=== PATIENT | male | born 1975 | race Two or more races ===

== ENCOUNTER 2017-07-08 12:59 | Inpatient (IN) | payer OTHER ==
[2017-07-08 14:04] VITALS: BMI 41.5
--- NOTE | 2017-07-08 19:38 | HP ---
Admission [facility] Chief Complaint: "I want to stop drinking alcohol and stop using drugs too." Patient is here for rehab for Alcohol, Cocaine, and Marijuana use. Allergies/Adverse Reactions: Allergies Allergy/AdvReac Type Severity Reaction Status Date / Time No Known Allergies Allergy Verified 07/08/17 15:44 History of Present Illness: Patient is a 42 YO male here for Rehab for Alcohol, Cocaine, and Marijuana use. Patient had a Detox admission at [facility] that he completed today. Patient had a Detox admission [facility] in 2012.Longest period of sobriety / non-drug use: approx. 5 months (2017). Exam Limitations: No Limitations - Ebola screening Have you traveled outside of the country in the last 21 days: No Have you had contact with anyone from an Ebola affected area: No Have you been sick,other than usual withdrawal symptoms: No Do you have a fever: No - Review of Systems Constitutional: Malaise, Changes in sleep EENT: reports: No Symptoms Reported Respiratory: reports: No Symptoms reported Cardiac: reports: No Symptoms Reported GI: reports: Constipated : reports: No Symptoms Reported Musculoskeletal: reports: Joint Pain, Joint Stiffness Integumentary: reports: Other (Erythema on face, lateral to sides of nose; started spontaneously 3 days ago.) Neuro: reports: Seizure (X 1 in 2005, due to ETOH withdrawal.) Endocrine: reports: No Symptoms Reported Hematology: reports: Blood Clots (History of Pulmonary Embolism X 2 (08/2015 and 03/2016).) Psychiatric: reports: Judgement Intact, Mood/Affect Appropiate, Orientated x3 Other Systems: Reviewed and Negative Patient History - Patient Medical History Hx Anemia: No Hx Asthma: No Hx Chronic Obstructive Pulmonary Disease (COPD): No Hx Cancer: No Hx Cardiac Disorders: No Hx Congestive Heart Failure: No Hx Hypertension: Yes (On med.) Hx Hypercholesterolemia: Yes (On med.) Hx Pacemaker: No HX Cerebrovascular Accident: No Hx Seizures: Yes (alcohol related-last episode, 2005.) Hx Dementia: No Hx Diabetes: No Hx Gastrointestinal Disorders: No Hx Liver Disease: No Hx Genitourinary Disorders: No Hx Sexually Transmitted Disorders: No Hx Renal Disease (ESRD): No Hx Thyroid Disease: No Hx Human Immunodeficiency Virus (HIV): No (Last Tested: 06/2017: NEGATIVE.) Hx Hepatitis C: No (Negative History.) Hx Depression: No Hx Suicide Attempt: No (PATIENT DENIES CURRENT SI / HI.) Hx Bipolar Disorder: No Hx Schizophrenia: Yes (Schizoaffective Disorder, currently on treatment) Other Medical History: History of Pulmonary Embolism X 2 (08/2015 and 03/2016). - Patient Surgical History Past Surgical History: Yes Hx Neurologic Surgery: No Hx Cataract Extraction: No Hx Cardiac Surgery: No Hx Lung Surgery: No Hx Breast Surgery: No Hx Breast Biopsy: No Hx Abdominal Surgery: Yes (umbilical hernia repair, 2011.) Hx Appendectomy: No Hx Cholecystectomy: No Hx Genitourinary Surgery: No Hx Section: No Hx Orthopedic Surgery: Yes (Lt. knee arthroscopic surgery, 2011.) Anesthesia Reaction: No - PPD History Previous Implant?: Yes Documented Results: Negative w/o proof Implanted On Prior [facility] Admission?: Yes Date: 07/12/12 PPD to be Administered?: Yes - Reproductive History Patient is a Female of Child Bearing Age (11 -55 yrs old): No (PATIENT IS MALE.) - Smoking Cessation Smoking history: Current some day smoker Aproximately how many cigarettes per day: 2 Cigars Per Day: 0 Hx Chewing Tobacco Use: No Initiated information on smoking cessation: Yes 'Breaking Loose' booklet given: 07/08/17 (GIVEN ON UNIT.) - Substance & Tx. History Hx Alcohol Use: Yes Hx Substance Use: Yes Substance Use Type: Alcohol, Cocaine, Marijuana Hx Substance Use Treatment: Yes (Detox at [facility] (07/2017), Detox at [facility] : 2012.) - Substances Abused Alcohol Route: Oral Frequency: Daily Amount used: 1 LITER VODKA Age of first use: 17 Date of Last Use: 06/29/17 Cocaine Route: Inhalation Frequency: Daily Amount used: 2 GRAMS Age of first use: 23 Date of Last Use: 06/29/17 Marijuana/Hashish Route: Smoking Frequency: 1-3 times last 30 days Amount used: 1 BLUNT Age of first use: 17 Date of Last Use: 06/29/17 Family Disease History - Family Disease History Family Disease History: Heart Disease: Grandparent (CVA) Admission Physical Exam [facility] - Vital Signs Vital Signs: Vital Signs - 24 hr 07/08/17 14:02 Temperature 96.1 F L Pulse Rate 105 H Respiratory 20 Rate Blood Pressure 153/91 - Physical General Appearance: Yes: No Apparent Distress, Nourished, Appropriately Dressed , Anxious HEENTM: Yes: Hearing grossly Normal, Normocephalic, Normal Voice, YUNI, Pharynx Normal Respiratory: Yes: Chest Non-Tender, Lungs Clear, No Respiratory Distress, No Accessory Muscle Use Neck: Yes: No masses,lesions,Nodules, Supple, Trachea in good position Breast: Yes: Breast Exam Deferred Cardiology: Yes: Regular Rhythm, Regular Rate, S1, S2 Abdominal: Yes: Normal Bowel Sounds, Non Tender, Soft, Protuberent Genitourinary: Yes: Within Normal Limits Back: Yes: Normal Inspection Musculoskeletal: Yes: Gait Steady, Joint Stiffness Extremities: Yes: Normal Capillary Refill, Normal Range of Motion Neurological: Yes: Fully Oriented, Alert, Normal Mood/Affect, Normal Response Integumentary: Yes: Normal Color, Dry, Warm, Erythema (Noted on face on bilateral sides of nose. Small opening in skin noted on Left Side. No swelling, bleeding, or unsual discharge noted.) Lymphatic: Yes: Within Normal Limits - Diagnostic (1) Uncomplicated alcohol dependence Current Visit: Yes Status: Acute (2) History of schizoaffective disorder Current Visit: Yes Status: Acute (3) Nicotine dependence Current Visit: Yes Status: Acute (4) Cocaine dependence, uncomplicated Current Visit: Yes Status: Acute (5) Cannabis dependence, uncomplicated Current Visit: Yes Status: Acute (6) Essential hypertension Current Visit: No Status: Active (7) Hypercholesterolemia Current Visit: Yes Status: Acute (8) History of seizure Current Visit: Yes Status: Suspected Comment: Due to ETOH. (9) History of pulmonary embolism Current Visit: Yes Status: Resolved Cleared for Admission [facility] - Detox or Rehab Claeared for Rehab Admission: Yes [facility] Breath Alcohol Content Breath Alcohol Content: 0 Urine Drug Screen - Results Drug Screen Negative: No Urine Drug Screen Results: BZO-Benzodiazepines
--- NOTE | 2017-07-08 20:12 | HP ---
Admission [facility] Chief Complaint: PLEASE NOTE: INPATIENT REHAB ADMISSION 'INITIAL DETERMINATION' AND 'REHAB ADMISSION CRITERIA' SECTIONS APPLY TO PREVIOUS HISTORY AND PHYSICAL. PLEASE DISREGARD ALL OTHER SECTIONS OF THIS DUPLICATE HISTORY AND PHYSICAL. Leesa GARCES NP. Allergies/Adverse Reactions: Allergies Allergy/AdvReac Type Severity Reaction Status Date / Time No Known Allergies Allergy Verified 07/08/17 15:44 - Ebola screening Have you traveled outside of the country in the last 21 days: No Have you had contact with anyone from an Ebola affected area: No Have you been sick,other than usual withdrawal symptoms: No Do you have a fever: No Patient History - Patient Medical History Hx Anemia: No Hx Asthma: No Hx Chronic Obstructive Pulmonary Disease (COPD): No Hx Cancer: No Hx Cardiac Disorders: No Hx Congestive Heart Failure: No Hx Hypertension: Yes (On med.) Hx Hypercholesterolemia: Yes (On med.) Hx Pacemaker: No HX Cerebrovascular Accident: No Hx Seizures: Yes (alcohol related-last episode, 2005.) Hx Dementia: No Hx Diabetes: No Hx Gastrointestinal Disorders: No Hx Liver Disease: No Hx Genitourinary Disorders: No Hx Sexually Transmitted Disorders: No Hx Renal Disease (ESRD): No Hx Thyroid Disease: No Hx Human Immunodeficiency Virus (HIV): No (Last Tested: 06/2017: NEGATIVE.) Hx Hepatitis C: No (Negative History.) Hx Depression: No Hx Suicide Attempt: No (PATIENT DENIES CURRENT SI / HI.) Hx Bipolar Disorder: No Hx Schizophrenia: Yes (Schizoaffective Disorder, currently on treatment) Other Medical History: History of Pulmonary Embolism X 2 (08/2015 and 03/2016). - Patient Surgical History Past Surgical History: Yes Hx Neurologic Surgery: No Hx Cataract Extraction: No Hx Cardiac Surgery: No Hx Lung Surgery: No Hx Breast Surgery: No Hx Breast Biopsy: No Hx Abdominal Surgery: Yes (umbilical hernia repair, 2011.) Hx Appendectomy: No Hx Cholecystectomy: No Hx Genitourinary Surgery: No Hx Section: No Hx Orthopedic Surgery: Yes (Lt. knee arthroscopic surgery, 2011.) Anesthesia Reaction: No - PPD History Previous Implant?: Yes Documented Results: Negative w/o proof Implanted On Prior [facility] Admission?: Yes Date: 07/12/12 - Smoking Cessation Smoking history: Current some day smoker Aproximately how many cigarettes per day: 2 Cigars Per Day: 0 Hx Chewing Tobacco Use: No Initiated information on smoking cessation: Yes 'Breaking Loose' booklet given: 07/08/17 (GIVEN TO PATIENT.) - Substances Abused Alcohol Route: Oral Frequency: Daily Amount used: 1 LITER VODKA Age of first use: 17 Date of Last Use: 06/29/17 Cocaine Route: Inhalation Frequency: Daily Amount used: 2 GRAMS Age of first use: 23 Date of Last Use: 06/29/17 Marijuana/Hashish Route: Smoking Frequency: 1-3 times last 30 days Amount used: 1 BLUNT Age of first use: 17 Date of Last Use: 06/29/17 Family Disease History - Family Disease History Family Disease History: Heart Disease: Grandparent (CVA) Admission Physical Exam S - Vital Signs Vital Signs: Vital Signs - 24 hr 07/08/17 14:02 Temperature 96.1 F L Pulse Rate 105 H Respiratory 20 Rate Blood Pressure 153/91 - Diagnostic (1) Uncomplicated alcohol dependence Current Visit: Yes Status: Acute (2) History of schizoaffective disorder Current Visit: Yes Status: Acute (3) Nicotine dependence Current Visit: Yes Status: Acute (4) Cocaine dependence, uncomplicated Current Visit: Yes Status: Acute (5) Cannabis dependence, uncomplicated Current Visit: Yes Status: Acute (6) Essential hypertension Current Visit: No Status: Active (7) Hypercholesterolemia Current Visit: Yes Status: Acute (8) History of seizure Current Visit: Yes Status: Suspected Comment: Due to ETOH. (9) History of pulmonary embolism Current Visit: Yes Status: Resolved [facility] Breath Alcohol Content Breath Alcohol Content: 0 Urine Drug Screen - Results Drug Screen Negative: No Urine Drug Screen Results: BZO-Benzodiazepines Inpatient Rehab Admission - Initial Determination Are CD services needed?: Yes Free of communicable disease: Yes Not in need of hospitalization: Yes - Rehab Admission Criteria Previous failed treatment: Yes Comorbidities: Yes Patient is meeting Inpatient Rehab admission criteria:: Yes
[2017-07-08] MEDS ORDERED: P-EPHED 60MG/TRIPROLIDI 2.5MG TABLET PO PRN (20:13)
[2017-07-08] MEDS ORDERED: IBUPROFEN 400 MG TABLET (FP) PO PRN (20:13)
[2017-07-08] MEDS ORDERED: ACETAMINOPHEN 325 MG TABLET (FP) PO PRN (20:13)
[2017-07-08] MEDS ORDERED: MENTHOL/PHENOL 1 EACH UD MM PRN (20:13)
[2017-07-08] MEDS ORDERED: MAG HYDROX/AL HYDROX/SIMETH 30 ML UNIT-DOSE CUP PO PRN (20:13)
[2017-07-08] MEDS ORDERED: guaiFENesin/D-METHORPHAN HB 10 ML UNIT-DOSE CUPS PO PRN (20:13)
[2017-07-08] MEDS ORDERED: LOPERAMIDE HCL 2 MG CAPSULE PO PRN (20:13)
[2017-07-08] MEDS ORDERED: diphenhydrAMINE HCL 25 MG CAPSULE (FP) PO PRN (20:15)
[2017-07-08] MEDS: SENNOSIDES 8.6MG TABLET (FP) PO SCH (21:56)
[2017-07-08] MEDS: THIAMINE HCL 100 MG TABLET (FP) PO SCH (21:56)
[2017-07-08] MEDS: ATORVASTATIN CA 20 MG TABLET (FP) PO SCH (21:56)
[2017-07-08] MEDS: DOCUSATE SODIUM 100 MG CAPSULE (FP) PO SCH (21:56)
[2017-07-08] MEDS: BACITRACIN 15 GM TUBE TOPICAL OINTMENT TP SCH (21:57)
[2017-07-08] MEDS ORDERED: TUBERCULIN PPD 5 TU/0.1ML VIAL ID ONE (22:04)
[2017-07-08] MEDS: APIXABAN 5 MG TABLET PO SCH (22:42)
[2017-07-08 23:02] LABS: URINE APPEARANCE CLEAR; URINE BILIRUBIN NEGATIVE (NEGATIVE); URINE BLOOD NEGATIVE (NEGATIVE); URINE COLOR LTYELLOW; URINE GLUCOSE (UA) NEGATIVE (NEGATIVE); URINE KETONE NEGATIVE (NEGATIVE); URINE LEUK ESTERASE NEGATIVE (NEGATIVE); URINE NITRITE NEGATIVE (NEGATIVE); URINE PROTEIN NEGATIVE (NEGATIVE); URINE UROBILINOGEN NEGATIVE mg/dL (0.2-1.0)
[2017-07-08] MEDS: GABAPENTIN 300 MG CAPSULE (FP) PO SCH (23:39)
[2017-07-08] MEDS: QUEtiapine FUMARATE 400 MG TABLET PO SCH (23:40)
[2017-07-08] MEDS: TOPIRAMATE 100 MG TABLET PO SCH (23:50)
[2017-07-09] MEDS: FLUoxetine HCL 20 MG CAPSULE (FP) PO SCH (10:37)
[2017-07-09] MEDS: amLODIPine BESYLATE 10 MG TABLET (FP) PO SCH (10:37)
[2017-07-09] MEDS: PRENATAL VITAMINS W/ FOLIC ACID TABLET (FP) PO SCH (10:37)
[2017-07-09] MEDS: SENNOSIDES 8.6MG TABLET (FP) PO SCH ×2 (10:37→21:57)
[2017-07-09] MEDS: BACITRACIN 15 GM TUBE TOPICAL OINTMENT TP SCH ×2 (10:38→21:56)
[2017-07-09] MEDS: DOCUSATE SODIUM 100 MG CAPSULE (FP) PO SCH ×2 (10:38→21:57)
[2017-07-09] MEDS: APIXABAN 5 MG TABLET PO SCH ×2 (10:38→21:57)
[2017-07-09] MEDS: GABAPENTIN 300 MG CAPSULE (FP) PO SCH ×2 (10:38→21:57)
[2017-07-09 10:41] LABS: HEMATOCRIT 35.9 % (35.4-49); HEMOGLOBIN 11.2 GM/dL (11.7-16.9); MCH 24.8 pg (25.7-33.7); MEAN CELL VOLUME 79.8 fl (80-96); MEAN PLT VOLUME 8.4 fl (7.5-11.1); PLATELET COUNT 224 K/MM3 (134-434); RDW 20.4 % (11.9-15.9); WHITE BLOOD COUNT 6.9 K/mm3 (4.0-10.0)
[2017-07-09 11:12] LABS: ALBUMIN 3.1 g/dl (3.4-5.0); ALK PHOS 73 U/L (45-117); ANION GAP 9 (8-16); BILIRUBIN,TOTAL 0.5 mg/dL (0.2-1.0); BLOOD UREA NITROGEN 10 mg/dL (7-18); CALCIUM 8.1 mg/dL (8.5-10.1); CHLORIDE 106 mmol/L (98-107); CO2 26 mmol/L (21-32); CREATININE 0.6 mg/dL (0.7-1.3); GLUCOSE,RANDOM 97 mg/dL (74-106); POTASSIUM 3.7 mmol/L (3.5-5.1); SGOT/AST 24 U/L (15-37); SGPT/ALT 33 U/L (12-78); SODIUM 141 mmol/L (136-145); TOT PROT 7.2 g/dl (6.4-8.2)
[2017-07-09] MEDS: MAGNESIUM HYDROX 2400MG/30ML ORAL SUSPENSION 30 ML CUP PO PRN ×2 (15:43→21:56)
[2017-07-09] MEDS: THIAMINE HCL 100 MG TABLET (FP) PO SCH (21:57)
[2017-07-09] MEDS: ATORVASTATIN CA 20 MG TABLET (FP) PO SCH (21:57)
[2017-07-09] MEDS: QUEtiapine FUMARATE 400 MG TABLET PO SCH (22:04)
[2017-07-09] MEDS: TOPIRAMATE 100 MG TABLET PO SCH (22:04)
[2017-07-10] MEDS: SENNOSIDES 8.6MG TABLET (FP) PO SCH ×2 (10:30→21:35)
[2017-07-10] MEDS: DOCUSATE SODIUM 100 MG CAPSULE (FP) PO SCH ×2 (10:30→21:37)
[2017-07-10] MEDS: APIXABAN 5 MG TABLET PO SCH ×2 (10:30→21:36)
[2017-07-10] MEDS: FLUoxetine HCL 20 MG CAPSULE (FP) PO SCH (10:30)
[2017-07-10] MEDS: GABAPENTIN 300 MG CAPSULE (FP) PO SCH ×2 (10:30→21:34)
[2017-07-10] MEDS: PRENATAL VITAMINS W/ FOLIC ACID TABLET (FP) PO SCH (10:31)
[2017-07-10] MEDS: amLODIPine BESYLATE 10 MG TABLET (FP) PO SCH (10:31)
[2017-07-10] MEDS: BACITRACIN 15 GM TUBE TOPICAL OINTMENT TP SCH ×2 (10:31→21:34)
--- NOTE | 2017-07-10 13:16 | EKG ---
Test Reason : Blood Pressure : / mmHG Vent. Rate : 072 BPM Atrial Rate : 072 BPM P-R Int : 168 ms QRS Dur : 098 ms QT Int : 394 ms P-R-T Axes : 054 -04 019 degrees QTc Int : 431 ms NORMAL SINUS RHYTHM NORMAL ECG WHEN COMPARED WITH ECG OF 08-JUL-2017 23:15, NO SIGNIFICANT CHANGE WAS FOUND Confirmed by MARKY ALONZO MD ([id number]) on 07/10/2017 1:16:12 PM Referred By: Confirmed By:MARKY ALONZO MD
--- NOTE | 2017-07-10 13:18 | EKG ---
Test Reason : Blood Pressure : / mmHG Vent. Rate : 096 BPM Atrial Rate : 096 BPM P-R Int : 164 ms QRS Dur : 106 ms QT Int : 358 ms P-R-T Axes : 053 -28 038 degrees QTc Int : 452 ms NORMAL SINUS RHYTHM POOR R WAVE PROGRESSION ABNORMAL ECG NO PREVIOUS ECGS AVAILABLE Confirmed by CHERI WALTERS, MARKY ([id number]) on 07/10/2017 1:17:40 PM Referred By: Confirmed By:MARKY ALONZO MD
[2017-07-10] MEDS: MAGNESIUM HYDROX 2400MG/30ML ORAL SUSPENSION 30 ML CUP PO PRN (17:42)
[2017-07-10] MEDS: THIAMINE HCL 100 MG TABLET (FP) PO SCH (21:34)
[2017-07-10] MEDS: TOPIRAMATE 100 MG TABLET PO SCH (21:35)
[2017-07-10] MEDS: ATORVASTATIN CA 20 MG TABLET (FP) PO SCH (21:35)
[2017-07-10] MEDS: QUEtiapine FUMARATE 400 MG TABLET PO SCH (21:37)
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
[2017-07-11] MEDS: amLODIPine BESYLATE 10 MG TABLET (FP) PO SCH (10:22)
[2017-07-11] MEDS: DOCUSATE SODIUM 100 MG CAPSULE (FP) PO SCH ×2 (10:22→22:03)
[2017-07-11] MEDS: SENNOSIDES 8.6MG TABLET (FP) PO SCH ×2 (10:22→22:02)
[2017-07-11] MEDS: PRENATAL VITAMINS W/ FOLIC ACID TABLET (FP) PO SCH (10:22)
[2017-07-11] MEDS: FLUoxetine HCL 20 MG CAPSULE (FP) PO SCH ×2 (10:23→10:24)
[2017-07-11] MEDS: APIXABAN 5 MG TABLET PO SCH ×2 (10:23→22:02)
[2017-07-11] MEDS: BACITRACIN 15 GM TUBE TOPICAL OINTMENT TP SCH ×2 (10:23→22:04)
[2017-07-11] MEDS: GABAPENTIN 300 MG CAPSULE (FP) PO SCH ×3 (10:36→22:02)
[2017-07-11] MEDS ORDERED: GABAPENTIN 300 MG CAPSULE (FP) PO SCH (14:00)
--- NOTE | 2017-07-11 16:23 | PN ---
[facility] Progress Note Note: pt c/o constipation; colace 100mg tid ordered
[2017-07-11] MEDS: MAGNESIUM CITRATE 300 ML BOTTLE PO PRN (17:34)
[2017-07-11] MEDS ORDERED: TOPIRAMATE 100 MG TABLET PO SCH (22:00)
[2017-07-11] MEDS: ATORVASTATIN CA 20 MG TABLET (FP) PO SCH (22:02)
[2017-07-11] MEDS: QUEtiapine FUMARATE 300 MG TABLET PO SCH (22:02)
[2017-07-11] MEDS: THIAMINE HCL 100 MG TABLET (FP) PO SCH (22:02)
[2017-07-11] MEDS: TOPIRAMATE 100 MG TABLET PO SCH (22:03)
[2017-07-12] MEDS: GABAPENTIN 300 MG CAPSULE (FP) PO SCH ×3 (06:30→21:22)
[2017-07-12] MEDS: DOCUSATE SODIUM 100 MG CAPSULE (FP) PO SCH ×3 (06:30→21:26)
[2017-07-12] MEDS: amLODIPine BESYLATE 10 MG TABLET (FP) PO SCH (10:44)
[2017-07-12] MEDS: FLUoxetine HCL 20 MG CAPSULE (FP) PO SCH (10:45)
[2017-07-12] MEDS: SENNOSIDES 8.6MG TABLET (FP) PO SCH ×2 (10:45→21:23)
[2017-07-12] MEDS: BACITRACIN 15 GM TUBE TOPICAL OINTMENT TP SCH ×2 (10:45→21:25)
[2017-07-12] MEDS: APIXABAN 5 MG TABLET PO SCH ×2 (10:45→21:24)
[2017-07-12] MEDS: PRENATAL VITAMINS W/ FOLIC ACID TABLET (FP) PO SCH (10:47)
--- NOTE | 2017-07-12 15:10 | PN ---
BHS Progress Note (SOAP) Subjective: c/o cosntipation - not repsonsive to colace or senna or citramayesterday Objective: 07/12/17 15:09 Vital Signs - 24 hr 07/12/17 07/12/17 07/12/17 00:30 03:29 06:52 Temperature 97.4 F L Pulse Rate 78 Respiratory 16 16 18 Rate Blood Pressure 114/76 07/12/17 10:00 Temperature Pulse Rate 84 Respiratory 18 Rate Blood Pressure 125/70 Laboratory Tests 07/08/17 07/09/17 07/09/17 22:32 07:50 07:50 WBC 6.9 RBC 4.50 Hgb 11.2 L D Hct 35.9 D MCV 79.8 L MCH 24.8 L MCHC 31.0 L RDW 20.4 H D Plt Count 224 D MPV 8.4 Sodium 141 Potassium 3.7 Chloride 106 Carbon Dioxide 26 Anion Gap 9 BUN 10 D Creatinine 0.6 L D Creat Clearance w eGFR > 60 Random Glucose 97 D Calcium 8.1 L Total Bilirubin 0.5 D AST 24 D ALT 33 D Alkaline Phosphatase 73 D Total Protein 7.2 Albumin 3.1 L D Urine Color Ltyellow Urine Appearance Clear Urine pH 6.0 Ur Specific [place] 1.006 Urine Protein Negative Urine Glucose (UA) Negative Urine Ketones Negative Urine Blood Negative Urine Nitrite Negative Urine Bilirubin Negative Urine Urobilinogen Negative Ur Leukocyte Esterase Negative RPR Titer Hepatitis C Antibody HIV 1&2 Antibody Screen HIV P24 Antigen 07/09/17 07/09/17 07/09/17 07:50 07:50 07:50 WBC RBC Hgb Hct MCV MCH MCHC RDW Plt Count MPV Sodium Potassium Chloride Carbon Dioxide Anion Gap BUN Creatinine Creat Clearance w eGFR Random Glucose Calcium Total Bilirubin AST ALT Alkaline Phosphatase Total Protein Albumin Urine Color Urine Appearance Urine pH Ur Specific [place] Urine Protein Urine Glucose (UA) Urine Ketones Urine Blood Urine Nitrite Urine Bilirubin Urine Urobilinogen Ur Leukocyte Esterase RPR Titer Nonreactive Hepatitis C Antibody 0.2 HIV 1&2 Antibody Screen Negative HIV P24 Antigen Negative Assessment: 07/12/17 15:09 colace 300mg qhs, senna bid, citrooma x1 dose now and prn, lactulaose 20m x1 dose ntw of medication induced constipation
[2017-07-12] MEDS ORDERED: LACTULOSE 20 GM/30 ML UDC (FOR ORAL USE ONLY) PO ONE (15:17)
[2017-07-12] MEDS ORDERED: MAGNESIUM CITRATE 300 ML BOTTLE PO ONE (15:17)
[2017-07-12] MEDS: QUEtiapine FUMARATE 300 MG TABLET PO SCH (21:23)
[2017-07-12] MEDS: ATORVASTATIN CA 20 MG TABLET (FP) PO SCH (21:23)
[2017-07-12] MEDS: TOPIRAMATE 100 MG TABLET PO SCH (21:24)
[2017-07-12] MEDS: THIAMINE HCL 100 MG TABLET (FP) PO SCH (21:24)
[2017-07-13] MEDS: GABAPENTIN 300 MG CAPSULE (FP) PO SCH ×3 (06:13→21:52)
[2017-07-13] MEDS: PRENATAL VITAMINS W/ FOLIC ACID TABLET (FP) PO SCH (10:19)
[2017-07-13] MEDS: APIXABAN 5 MG TABLET PO SCH ×2 (10:19→21:52)
[2017-07-13] MEDS: SENNOSIDES 8.6MG TABLET (FP) PO SCH ×2 (10:19→21:52)
[2017-07-13] MEDS: BACITRACIN 15 GM TUBE TOPICAL OINTMENT TP SCH ×2 (10:19→21:54)
[2017-07-13] MEDS: FLUoxetine HCL 20 MG CAPSULE (FP) PO SCH (10:20)
[2017-07-13] MEDS: amLODIPine BESYLATE 10 MG TABLET (FP) PO SCH (10:20)
[2017-07-13] MEDS: MAGNESIUM HYDROX 2400MG/30ML ORAL SUSPENSION 30 ML CUP PO PRN (13:10)
[2017-07-13] MEDS: THIAMINE HCL 100 MG TABLET (FP) PO SCH (21:51)
[2017-07-13] MEDS: DOCUSATE SODIUM 100 MG CAPSULE (FP) PO SCH (21:52)
[2017-07-13] MEDS: ATORVASTATIN CA 20 MG TABLET (FP) PO SCH (21:52)
[2017-07-13] MEDS: QUEtiapine FUMARATE 300 MG TABLET PO SCH (21:52)
[2017-07-13] MEDS: TOPIRAMATE 100 MG TABLET PO SCH (21:52)
[2017-07-14] MEDS: GABAPENTIN 300 MG CAPSULE (FP) PO SCH ×3 (05:55→21:43)
[2017-07-14] MEDS: SENNOSIDES 8.6MG TABLET (FP) PO SCH ×2 (10:27→21:43)
[2017-07-14] MEDS: APIXABAN 5 MG TABLET PO SCH ×2 (10:27→21:43)
[2017-07-14] MEDS: amLODIPine BESYLATE 10 MG TABLET (FP) PO SCH (10:27)
[2017-07-14] MEDS: FLUoxetine HCL 20 MG CAPSULE (FP) PO SCH (10:27)
[2017-07-14] MEDS: PRENATAL VITAMINS W/ FOLIC ACID TABLET (FP) PO SCH (10:28)
[2017-07-14] MEDS: BACITRACIN 15 GM TUBE TOPICAL OINTMENT TP SCH ×2 (10:28→21:44)
[2017-07-14] MEDS: MAGNESIUM CITRATE 300 ML BOTTLE PO PRN (12:45)
[2017-07-14] MEDS: TOPIRAMATE 100 MG TABLET PO SCH (21:43)
[2017-07-14] MEDS: QUEtiapine FUMARATE 300 MG TABLET PO SCH (21:43)
[2017-07-14] MEDS: DOCUSATE SODIUM 100 MG CAPSULE (FP) PO SCH (21:43)
[2017-07-14] MEDS: ATORVASTATIN CA 20 MG TABLET (FP) PO SCH (21:43)
[2017-07-14] MEDS: THIAMINE HCL 100 MG TABLET (FP) PO SCH (21:44)
[2017-07-15] MEDS: GABAPENTIN 300 MG CAPSULE (FP) PO SCH ×3 (06:30→21:15)
[2017-07-15] MEDS: SENNOSIDES 8.6MG TABLET (FP) PO SCH ×2 (10:24→21:14)
[2017-07-15] MEDS: FLUoxetine HCL 20 MG CAPSULE (FP) PO SCH (10:24)
[2017-07-15] MEDS: APIXABAN 5 MG TABLET PO SCH ×2 (10:24→21:14)
[2017-07-15] MEDS: amLODIPine BESYLATE 10 MG TABLET (FP) PO SCH (10:24)
[2017-07-15] MEDS: PRENATAL VITAMINS W/ FOLIC ACID TABLET (FP) PO SCH (10:24)
[2017-07-15] MEDS: BACITRACIN 15 GM TUBE TOPICAL OINTMENT TP SCH (10:25)
[2017-07-15] MEDS: MAGNESIUM HYDROX 2400MG/30ML ORAL SUSPENSION 30 ML CUP PO PRN (10:26)
[2017-07-15] MEDS: BACITRACIN 0.9 GM PACKET TP SCH ×2 (12:39→21:13)
[2017-07-15] MEDS: DOCUSATE SODIUM 100 MG CAPSULE (FP) PO SCH (21:13)
[2017-07-15] MEDS: THIAMINE HCL 100 MG TABLET (FP) PO SCH (21:13)
[2017-07-15] MEDS: TOPIRAMATE 100 MG TABLET PO SCH (21:13)
[2017-07-15] MEDS: QUEtiapine FUMARATE 300 MG TABLET PO SCH (21:13)
[2017-07-15] MEDS: ATORVASTATIN CA 20 MG TABLET (FP) PO SCH (21:14)
[2017-07-16] MEDS: GABAPENTIN 300 MG CAPSULE (FP) PO SCH ×3 (06:42→21:35)
[2017-07-16] MEDS: APIXABAN 5 MG TABLET PO SCH ×2 (10:28→21:35)
[2017-07-16] MEDS: BACITRACIN 0.9 GM PACKET TP SCH ×2 (10:28→21:37)
[2017-07-16] MEDS: PRENATAL VITAMINS W/ FOLIC ACID TABLET (FP) PO SCH (10:28)
[2017-07-16] MEDS: amLODIPine BESYLATE 10 MG TABLET (FP) PO SCH (10:28)
[2017-07-16] MEDS: FLUoxetine HCL 20 MG CAPSULE (FP) PO SCH (10:28)
[2017-07-16] MEDS: SENNOSIDES 8.6MG TABLET (FP) PO SCH ×2 (10:28→21:35)
[2017-07-16] MEDS: MAGNESIUM HYDROX 2400MG/30ML ORAL SUSPENSION 30 ML CUP PO PRN (16:01)
[2017-07-16] MEDS: TOPIRAMATE 100 MG TABLET PO SCH (21:35)
[2017-07-16] MEDS: ATORVASTATIN CA 20 MG TABLET (FP) PO SCH (21:35)
[2017-07-16] MEDS: THIAMINE HCL 100 MG TABLET (FP) PO SCH (21:35)
[2017-07-16] MEDS: QUEtiapine FUMARATE 300 MG TABLET PO SCH (21:35)
[2017-07-16] MEDS: DOCUSATE SODIUM 100 MG CAPSULE (FP) PO SCH (21:36)
[2017-07-17] MEDS: GABAPENTIN 300 MG CAPSULE (FP) PO SCH ×3 (06:27→21:56)
[2017-07-17] MEDS: BACITRACIN 0.9 GM PACKET TP SCH ×2 (10:27→21:56)
[2017-07-17] MEDS: APIXABAN 5 MG TABLET PO SCH ×2 (10:27→21:57)
[2017-07-17] MEDS: PRENATAL VITAMINS W/ FOLIC ACID TABLET (FP) PO SCH (10:27)
[2017-07-17] MEDS: FLUoxetine HCL 20 MG CAPSULE (FP) PO SCH (10:28)
[2017-07-17] MEDS: amLODIPine BESYLATE 10 MG TABLET (FP) PO SCH (10:28)
[2017-07-17] MEDS: SENNOSIDES 8.6MG TABLET (FP) PO SCH ×2 (10:28→21:57)
[2017-07-17] MEDS: MAGNESIUM CITRATE 300 ML BOTTLE PO PRN (16:30)
[2017-07-17] MEDS: TOPIRAMATE 100 MG TABLET PO SCH (21:57)
[2017-07-17] MEDS: ATORVASTATIN CA 20 MG TABLET (FP) PO SCH (21:57)
[2017-07-17] MEDS: THIAMINE HCL 100 MG TABLET (FP) PO SCH (21:57)
[2017-07-17] MEDS: DOCUSATE SODIUM 100 MG CAPSULE (FP) PO SCH (21:57)
[2017-07-17] MEDS: QUEtiapine FUMARATE 300 MG TABLET PO SCH (21:57)
[2017-07-18] MEDS: GABAPENTIN 300 MG CAPSULE (FP) PO SCH ×3 (06:40→21:28)
[2017-07-18] MEDS: APIXABAN 5 MG TABLET PO SCH ×2 (10:32→21:28)
[2017-07-18] MEDS: FLUoxetine HCL 20 MG CAPSULE (FP) PO SCH (10:32)
[2017-07-18] MEDS: PRENATAL VITAMINS W/ FOLIC ACID TABLET (FP) PO SCH (10:32)
[2017-07-18] MEDS: amLODIPine BESYLATE 10 MG TABLET (FP) PO SCH (10:32)
[2017-07-18] MEDS: SENNOSIDES 8.6MG TABLET (FP) PO SCH ×2 (10:32→21:28)
[2017-07-18] MEDS: BACITRACIN 0.9 GM PACKET TP SCH ×2 (10:33→21:27)
[2017-07-18] MEDS: MAGNESIUM HYDROX 2400MG/30ML ORAL SUSPENSION 30 ML CUP PO PRN (18:12)
[2017-07-18] MEDS: DOCUSATE SODIUM 100 MG CAPSULE (FP) PO SCH (21:27)
[2017-07-18] MEDS: THIAMINE HCL 100 MG TABLET (FP) PO SCH (21:27)
[2017-07-18] MEDS: TOPIRAMATE 100 MG TABLET PO SCH (21:28)
[2017-07-18] MEDS: QUEtiapine FUMARATE 300 MG TABLET PO SCH (21:28)
[2017-07-18] MEDS: ATORVASTATIN CA 20 MG TABLET (FP) PO SCH (21:28)
[2017-07-19] MEDS: GABAPENTIN 300 MG CAPSULE (FP) PO SCH ×3 (06:37→22:08)
[2017-07-19] MEDS: PRENATAL VITAMINS W/ FOLIC ACID TABLET (FP) PO SCH (10:43)
[2017-07-19] MEDS: amLODIPine BESYLATE 10 MG TABLET (FP) PO SCH (10:43)
[2017-07-19] MEDS: SENNOSIDES 8.6MG TABLET (FP) PO SCH ×2 (10:44→22:08)
[2017-07-19] MEDS: FLUoxetine HCL 20 MG CAPSULE (FP) PO SCH (10:44)
[2017-07-19] MEDS: APIXABAN 5 MG TABLET PO SCH ×2 (10:44→22:08)
[2017-07-19] MEDS: BACITRACIN 0.9 GM PACKET TP SCH ×2 (10:44→22:07)
[2017-07-19] MEDS: MAGNESIUM CITRATE 300 ML BOTTLE PO PRN (17:04)
[2017-07-19] MEDS: DOCUSATE SODIUM 100 MG CAPSULE (FP) PO SCH (22:08)
[2017-07-19] MEDS: QUEtiapine FUMARATE 300 MG TABLET PO SCH (22:08)
[2017-07-19] MEDS: TOPIRAMATE 100 MG TABLET PO SCH (22:08)
[2017-07-19] MEDS: ATORVASTATIN CA 20 MG TABLET (FP) PO SCH (22:09)
[2017-07-19] MEDS: THIAMINE HCL 100 MG TABLET (FP) PO SCH (22:09)
[2017-07-20] MEDS: GABAPENTIN 300 MG CAPSULE (FP) PO SCH ×3 (06:23→21:45)
[2017-07-20] MEDS: SENNOSIDES 8.6MG TABLET (FP) PO SCH ×2 (10:33→21:46)
[2017-07-20] MEDS: amLODIPine BESYLATE 10 MG TABLET (FP) PO SCH (10:33)
[2017-07-20] MEDS: BACITRACIN 0.9 GM PACKET TP SCH ×2 (10:33→21:45)
[2017-07-20] MEDS: APIXABAN 5 MG TABLET PO SCH ×2 (10:33→21:46)
[2017-07-20] MEDS: PRENATAL VITAMINS W/ FOLIC ACID TABLET (FP) PO SCH (10:33)
[2017-07-20] MEDS: FLUoxetine HCL 20 MG CAPSULE (FP) PO SCH (10:33)
[2017-07-20] MEDS: MAGNESIUM HYDROX 2400MG/30ML ORAL SUSPENSION 30 ML CUP PO PRN (14:43)
[2017-07-20] MEDS: DOCUSATE SODIUM 100 MG CAPSULE (FP) PO SCH (21:45)
[2017-07-20] MEDS: QUEtiapine FUMARATE 300 MG TABLET PO SCH (21:45)
[2017-07-20] MEDS: THIAMINE HCL 100 MG TABLET (FP) PO SCH (21:45)
[2017-07-20] MEDS: TOPIRAMATE 100 MG TABLET PO SCH (21:46)
[2017-07-20] MEDS: ATORVASTATIN CA 20 MG TABLET (FP) PO SCH (21:46)
[2017-07-21] MEDS ORDERED: PT OWN MED DRAWER 7, Y5N ONE (04:53)
[2017-07-21] MEDS: GABAPENTIN 300 MG CAPSULE (FP) PO SCH ×3 (06:30→21:47)
[2017-07-21 07:08] VITALS: TEMP 97.2
[2017-07-21] MEDS: PRENATAL VITAMINS W/ FOLIC ACID TABLET (FP) PO SCH (10:40)
[2017-07-21] MEDS: FLUoxetine HCL 20 MG CAPSULE (FP) PO SCH (10:40)
[2017-07-21] MEDS: APIXABAN 5 MG TABLET PO SCH ×2 (10:40→21:48)
[2017-07-21] MEDS: SENNOSIDES 8.6MG TABLET (FP) PO SCH ×2 (10:40→21:47)
[2017-07-21] MEDS: BACITRACIN 0.9 GM PACKET TP SCH ×2 (10:40→21:47)
[2017-07-21] MEDS: amLODIPine BESYLATE 10 MG TABLET (FP) PO SCH (10:40)
[2017-07-21] MEDS: MAGNESIUM CITRATE 300 ML BOTTLE PO PRN (16:55)
[2017-07-21] MEDS: THIAMINE HCL 100 MG TABLET (FP) PO SCH (21:47)
[2017-07-21] MEDS: ATORVASTATIN CA 20 MG TABLET (FP) PO SCH (21:48)
[2017-07-21] MEDS: QUEtiapine FUMARATE 300 MG TABLET PO SCH (21:48)
[2017-07-21] MEDS: TOPIRAMATE 100 MG TABLET PO SCH (21:48)
[2017-07-21] MEDS: DOCUSATE SODIUM 100 MG CAPSULE (FP) PO SCH (21:48)
[2017-07-22] MEDS: GABAPENTIN 300 MG CAPSULE (FP) PO SCH (05:52)
[2017-07-22] MEDS: BACITRACIN 0.9 GM PACKET TP SCH (10:37)
[2017-07-22] MEDS: FLUoxetine HCL 20 MG CAPSULE (FP) PO SCH (10:37)
[2017-07-22] MEDS: APIXABAN 5 MG TABLET PO SCH (10:37)
[2017-07-22] MEDS: SENNOSIDES 8.6MG TABLET (FP) PO SCH (10:38)
[2017-07-22] MEDS: PRENATAL VITAMINS W/ FOLIC ACID TABLET (FP) PO SCH (10:38)
[2017-07-22] MEDS: amLODIPine BESYLATE 10 MG TABLET (FP) PO SCH (10:38)
--- NOTE | 2017-07-22 10:50 | PN ---
Psychiatric Progress Note Vital Signs: Vital Signs Period Temp Pulse Resp BP Sys/Samuels Pulse Ox Last 24 Hr 97.2 F 93 20-20 126/74 Date of Session: 07/22/17 Chief Complaint:: "Discharge" HPI: Pt.with a history of alcohol, cocaine, and marijuana dependence. ROS: Unremarkable. Current Medications: Active Medications Generic Name Dose Route Start Last Admin Trade Name Freq PRN Reason Stop Dose Admin Acetaminophen 650 mg 07/08/17 20:13 Tylenol - PO Q4H PRN FEVER Al Hydroxide/Mg Hydroxide 30 ml 07/08/17 20:13 07/15/17 17:52 Mylanta Oral Suspension - PO 30 ml Q6H PRN Administration DYSPEPSIA Amlodipine Besylate 10 mg 07/09/17 10:00 07/22/17 10:38 Norvasc - PO 10 mg DAILY ELISEO Administration Apixaban 5 mg 07/08/17 22:00 07/22/17 10:37 Eliquis - PO 5 mg BID ELISEO Administration Atorvastatin Calcium 20 mg 07/08/17 22:00 07/21/17 21:48 Lipitor - PO 20 mg HS ELISEO Administration Bacitracin 0.9 gm 07/15/17 11:12 07/22/17 10:37 Bacitracin - TP 0.9 gm BID ELISEO Administration Diphenhydramine HCl 50 mg 07/08/17 20:15 Benadryl - PO HS PRN INSOMNIA Docusate Sodium 300 mg 07/12/17 22:00 07/21/17 21:48 Colace - PO 300 mg HS ELISEO Administration Eucalyptus/Menthol/Phenol/Sorbitol 1 each 07/08/17 20:13 Cepastat Lozenge - MM Q4H PRN SORE THROAT Fluoxetine HCl 60 mg 07/11/17 10:15 07/22/17 10:37 Prozac - PO 60 mg DAILY ELISEO Administration Gabapentin 600 mg 07/11/17 14:00 07/22/17 05:52 Neurontin - PO 600 mg TID ELISEO Administration Guaifenesin 10 ml 07/08/17 20:13 Robitussin Dm - PO Q6H PRN COUGH Loperamide HCl 4 mg 07/08/17 20:13 Imodium - PO Q6H PRN DIARRHEA Magnesium Citrate 300 ml 07/08/17 20:13 07/21/17 16:55 Citroma - PO 300 ml Q48H PRN Administration CONSTIPATION Magnesium Hydroxide 30 ml 07/08/17 20:13 07/20/17 14:43 Milk Of Magnesia - PO 30 ml DAILY PRN Administration CONSTIPATION Multivit/Folic Acid/Iron 1 tab 07/09/17 10:00 07/22/17 10:38 Vitamins ([facility]) - PO 1 tab DAILY ELISEO Administration Pseudoephedrine/Triprolidine 1 combo 07/08/17 20:13 Actifed - PO TID PRN NASAL CONGESTION Quetiapine Fumarate 600 mg 07/11/17 22:00 07/21/17 21:48 Seroquel - PO 600 mg HS ELISEO Administration Senna 1 tab 07/08/17 22:00 07/22/17 10:38 Senna - PO 1 tab BID ELISEO Administration Thiamine HCl 100 mg 07/08/17 22:00 07/21/17 21:47 Vitamin B1 - PO 100 mg HS ELISEO Administration Topiramate 100 mg 07/08/17 23:30 07/21/17 21:48 Topamax - PO 100 mg HS ELISEO Administration Medication(s) Change(s): No. Current Side Effect: No Lab tests ordered: No Lab tests reviewed: Yes Provider note:: Pt. completed the inpatient rehabilitation program on 07/22/17. Her has met his treatment goals and will continue to address his issues in outpatient treatment at [facility] in [place], [place]. Pt is able to understand the consequences of his addiction and the need to make positive changes to his life style in order to maintain abstinence. Pt. responded well to Prozac 60mg PO daily, Gabapentin 600mg TID, Seroquel 600mg qhs , and Topamax 100mg qhs.A script for 30 days will be sent to patient's pharmay at [place] [id number]. Pt. is stable for discharge. Total face to face time:: 25 Mental Status Exam - Mental Status Exam Alert and Oriented to: Time, Place, Person Cognitive Function: Good Patient Appearance: Unkempt Mood: Euthymic Affect: Mood Congruent Patient Behavior: Appropriate, Cooperative Speech Pattern: Clear, Appropriate Voice Loudness: Normal Thought Process: Goal Oriented Thought Disorder: Not Present Hallucinations: Denies Suicidal Ideation: Denies Homicidal Ideation: Denies Insight/Judgement: Good Sleep: Well Appetite: Good Muscle strength/Tone: Normal Gait/Station: Normal Psychiatric Treatment Plan - Problem List (1) Alcohol dependence Current Visit: Yes (2) Cannabis dependence Current Visit: Yes (3) Cocaine dependence Current Visit: Yes (4) Substance-induced sleep disorder Current Visit: Yes (5) Nicotine dependence Current Visit: Yes (6) Schizoaffective disorder Current Visit: Yes
[2017-07-22 12:25] VITALS: BP 113/68; PULSE 106
== END 2017-07-22 11:15 | disposition home or self-care (01) | DRG 772 ==
LOC: YASAS 12:59 → Y3W 16:23
PROVIDERS: ADMIT Psychiatry & Neurology Psychiatry; ATTEND Psychiatry & Neurology Psychiatry
PROC: HZ42ZZZ Group Counseling for Substance Abuse Treatment, Cognitive-Behavioral (ICD-10-PCS; principal; 2017-07-08)
DX: F10.20 Alcohol dependence, uncomplicated (principal); F14.20 Cocaine dependence, uncomplicated; F12.20 Cannabis dependence, uncomplicated; F17.210 Nicotine dependence, cigarettes, uncomplicated; F25.9 Schizoaffective disorder, unspecified; F10.282 Alcohol dependence with alcohol-induced sleep disorder; E78.00 Pure hypercholesterolemia, unspecified; Z86.69 Personal history of other diseases of the nervous system and sense organs; Z86.711 Personal history of pulmonary embolism
CPT/HCPCS: 36415; 80053; 81003; 85027; 86593; 86803; 87389; 93005; 93010

== ENCOUNTER 2021-07-15 18:28 | Inpatient (IN) | payer BC ==
[2021-07-15] MEDS ORDERED: MELATONIN 5 MG TABLETS PO SCH (22:00)
[2021-07-15] MEDS ORDERED: P-EPHED 60MG/TRIPROLIDI 2.5MG TABLET PO PRN (22:22)
[2021-07-15] MEDS ORDERED: MAGNESIUM CITRATE 300 ML BOTTLE PO PRN (22:22)
[2021-07-15] MEDS ORDERED: ACETAMINOPHEN 325 MG TABLET (FP) PO PRN (22:22)
[2021-07-15] MEDS ORDERED: MAGNESIUM HYDROX 2400MG/30ML ORAL SUSPENSION 30 ML CUP PO PRN (22:22)
[2021-07-15] MEDS ORDERED: IBUPROFEN 400 MG TABLET (FP) PO PRN (22:22)
[2021-07-15] MEDS ORDERED: MENTHOL/PHENOL 1 EACH UD MM PRN (22:22)
[2021-07-15] MEDS ORDERED: guaiFENesin 200 MG/10 ML 10 ML UNIT-DOSE CUPS PO PRN (22:22)
[2021-07-15] MEDS ORDERED: MAG HYDROX/AL HYDROX/SIMETH 30 ML UNIT-DOSE CUP PO PRN (22:22)
[2021-07-15] MEDS ORDERED: GABAPENTIN 400 MG CAPSULE PO ONE (22:26)
[2021-07-16 00:02] VITALS: BMI 49.0
[2021-07-16] MEDS: APIXABAN 5 MG TABLET PO SCH ×3 (00:52→21:53)
[2021-07-16] MEDS: INSULIN SLIDING SCALE (NOVOLOG) 1 VIAL SQ SCH ×5 (00:55→21:55)
[2021-07-16] MEDS: PRENATAL VITAMINS W/ FOLIC ACID TABLET (FP) PO SCH (09:30)
[2021-07-16] MEDS: NIFEdipine E.R. 30 MG TABLET PO SCH (10:55)
[2021-07-16] MEDS ORDERED: INSULIN (NOVOLOG) ASPART 100 UNITS/ML 10ML VIAL ONE (11:59)
[2021-07-16] MEDS: FLUoxetine HCL 20 MG CAPSULE PO SCH (12:03)
[2021-07-16] MEDS: GABAPENTIN 400 MG CAPSULE PO SCH ×2 (15:58→21:53)
[2021-07-16] MEDS: traZODone HCL 100 MG TABLET (FP) PO SCH (21:53)
[2021-07-16] MEDS: TOPIRAMATE 100 MG TABLET PO SCH (21:53)
[2021-07-16] MEDS: THIAMINE HCL 100 MG TABLET (FP) PO SCH (21:53)
[2021-07-16] MEDS: QUEtiapine FUMARATE 400 MG TABLET PO SCH (21:54)
[2021-07-16] MEDS: ATORVASTATIN CA 20 MG TABLET (FP) PO SCH (22:11)
[2021-07-17] MEDS: GABAPENTIN 400 MG CAPSULE PO SCH ×3 (06:44→21:09)
[2021-07-17] MEDS: INSULIN SLIDING SCALE (NOVOLOG) 1 VIAL SQ SCH ×4 (06:45→21:09)
[2021-07-17] MEDS: PRENATAL VITAMINS W/ FOLIC ACID TABLET (FP) PO SCH (10:27)
[2021-07-17] MEDS: APIXABAN 5 MG TABLET PO SCH ×2 (10:27→21:09)
[2021-07-17] MEDS: FLUoxetine HCL 20 MG CAPSULE PO SCH (10:27)
[2021-07-17] MEDS: NIFEdipine E.R. 30 MG TABLET PO SCH (10:28)
[2021-07-17] MEDS: THIAMINE HCL 100 MG TABLET (FP) PO SCH (21:08)
[2021-07-17] MEDS: TOPIRAMATE 100 MG TABLET PO SCH (21:08)
[2021-07-17] MEDS: QUEtiapine FUMARATE 400 MG TABLET PO SCH (21:08)
[2021-07-17] MEDS: traZODone HCL 100 MG TABLET (FP) PO SCH (21:09)
[2021-07-17] MEDS: ATORVASTATIN CA 20 MG TABLET (FP) PO SCH (21:09)
[2021-07-18] MEDS: INSULIN SLIDING SCALE (NOVOLOG) 1 VIAL SQ SCH ×4 (06:21→21:46)
[2021-07-18] MEDS: GABAPENTIN 400 MG CAPSULE PO SCH ×3 (06:21→21:40)
[2021-07-18] MEDS: NIFEdipine E.R. 30 MG TABLET PO SCH (10:24)
[2021-07-18] MEDS: FLUoxetine HCL 20 MG CAPSULE PO SCH (10:24)
[2021-07-18] MEDS: PRENATAL VITAMINS W/ FOLIC ACID TABLET (FP) PO SCH (10:24)
[2021-07-18] MEDS: APIXABAN 5 MG TABLET PO SCH ×2 (10:24→21:41)
[2021-07-18] MEDS ORDERED: INSULIN (NOVOLOG) ASPART 100 UNITS/ML 10ML VIAL ONE ×2 (17:31→19:33)
[2021-07-18] MEDS: QUEtiapine FUMARATE 400 MG TABLET PO SCH (21:40)
[2021-07-18] MEDS: THIAMINE HCL 100 MG TABLET (FP) PO SCH (21:41)
[2021-07-18] MEDS: ATORVASTATIN CA 20 MG TABLET (FP) PO SCH (21:41)
[2021-07-18] MEDS: TOPIRAMATE 100 MG TABLET PO SCH (21:41)
[2021-07-18] MEDS: traZODone HCL 100 MG TABLET (FP) PO SCH (21:41)
[2021-07-19] MEDS: GABAPENTIN 400 MG CAPSULE PO SCH ×3 (06:38→21:11)
[2021-07-19] MEDS: INSULIN SLIDING SCALE (NOVOLOG) 1 VIAL SQ SCH ×4 (06:39→22:36)
[2021-07-19] MEDS: PRENATAL VITAMINS W/ FOLIC ACID TABLET (FP) PO SCH (09:25)
[2021-07-19] MEDS: FLUoxetine HCL 20 MG CAPSULE PO SCH (09:25)
[2021-07-19] MEDS: APIXABAN 5 MG TABLET PO SCH ×2 (09:25→21:11)
[2021-07-19] MEDS: NIFEdipine E.R. 30 MG TABLET PO SCH (09:25)
[2021-07-19] MEDS: traZODone HCL 100 MG TABLET (FP) PO SCH (21:11)
[2021-07-19] MEDS: ATORVASTATIN CA 20 MG TABLET (FP) PO SCH (21:11)
[2021-07-19] MEDS: QUEtiapine FUMARATE 400 MG TABLET PO SCH (21:11)
[2021-07-19] MEDS: TOPIRAMATE 100 MG TABLET PO SCH (21:12)
[2021-07-19] MEDS: THIAMINE HCL 100 MG TABLET (FP) PO SCH (21:13)
[2021-07-19] MEDS ORDERED: INSULIN (NOVOLOG) ASPART 100 UNITS/ML 10ML VIAL ONE (21:52)
[2021-07-20] MEDS: GABAPENTIN 400 MG CAPSULE PO SCH ×3 (06:27→21:03)
[2021-07-20] MEDS: INSULIN SLIDING SCALE (NOVOLOG) 1 VIAL SQ SCH ×4 (06:27→21:03)
[2021-07-20] MEDS: NIFEdipine E.R. 30 MG TABLET PO SCH (10:32)
[2021-07-20] MEDS: APIXABAN 5 MG TABLET PO SCH ×2 (10:32→21:03)
[2021-07-20] MEDS: FLUoxetine HCL 20 MG CAPSULE PO SCH (10:32)
[2021-07-20] MEDS: PRENATAL VITAMINS W/ FOLIC ACID TABLET (FP) PO SCH (10:32)
[2021-07-20] MEDS: metFORMIN HCL 500 MG TABLET (FP) PO SCH (16:51)
[2021-07-20] MEDS: traZODone HCL 100 MG TABLET (FP) PO SCH (21:03)
[2021-07-20] MEDS: ATORVASTATIN CA 20 MG TABLET (FP) PO SCH (21:03)
[2021-07-20] MEDS: TOPIRAMATE 100 MG TABLET PO SCH (21:03)
[2021-07-20] MEDS: QUEtiapine FUMARATE 400 MG TABLET PO SCH (21:04)
[2021-07-20] MEDS: THIAMINE HCL 100 MG TABLET (FP) PO SCH (21:05)
[2021-07-21] MEDS: GABAPENTIN 400 MG CAPSULE PO SCH ×3 (06:33→21:43)
[2021-07-21] MEDS: metFORMIN HCL 500 MG TABLET (FP) PO SCH ×2 (06:33→17:15)
[2021-07-21] MEDS: INSULIN SLIDING SCALE (NOVOLOG) 1 VIAL SQ SCH ×3 (06:37→17:17)
[2021-07-21] MEDS: PRENATAL VITAMINS W/ FOLIC ACID TABLET (FP) PO SCH (09:11)
[2021-07-21] MEDS: APIXABAN 5 MG TABLET PO SCH ×2 (09:11→21:43)
[2021-07-21] MEDS: FLUoxetine HCL 20 MG CAPSULE PO SCH (09:12)
[2021-07-21] MEDS: NIFEdipine E.R. 30 MG TABLET PO SCH (09:12)
[2021-07-21] MEDS: ATORVASTATIN CA 20 MG TABLET (FP) PO SCH (21:43)
[2021-07-21] MEDS: TOPIRAMATE 100 MG TABLET PO SCH (21:43)
[2021-07-21] MEDS: THIAMINE HCL 100 MG TABLET (FP) PO SCH (21:43)
[2021-07-21] MEDS: QUEtiapine FUMARATE 400 MG TABLET PO SCH (21:43)
[2021-07-21] MEDS: traZODone HCL 100 MG TABLET (FP) PO SCH (21:43)
[2021-07-22] MEDS: GABAPENTIN 400 MG CAPSULE PO SCH ×3 (06:30→21:35)
[2021-07-22] MEDS: metFORMIN HCL 500 MG TABLET (FP) PO SCH ×2 (06:30→16:56)
[2021-07-22] MEDS: INSULIN SLIDING SCALE (NOVOLOG) 1 VIAL SQ SCH (06:32)
[2021-07-22] MEDS: NIFEdipine E.R. 30 MG TABLET PO SCH (10:08)
[2021-07-22] MEDS: PRENATAL VITAMINS W/ FOLIC ACID TABLET (FP) PO SCH (10:08)
[2021-07-22] MEDS: APIXABAN 5 MG TABLET PO SCH ×2 (10:08→21:35)
[2021-07-22] MEDS: FLUoxetine HCL 20 MG CAPSULE PO SCH (10:09)
[2021-07-22 12:06] LABS: SARS-CoV-2 NAA Not Detected
[2021-07-22] MEDS: TOPIRAMATE 100 MG TABLET PO SCH (21:34)
[2021-07-22] MEDS: traZODone HCL 100 MG TABLET (FP) PO SCH (21:34)
[2021-07-22] MEDS: THIAMINE HCL 100 MG TABLET (FP) PO SCH (21:34)
[2021-07-22] MEDS: ATORVASTATIN CA 20 MG TABLET (FP) PO SCH (21:34)
[2021-07-22] MEDS: QUEtiapine FUMARATE 400 MG TABLET PO SCH (21:34)
[2021-07-23] MEDS: GABAPENTIN 400 MG CAPSULE PO SCH ×3 (06:30→21:05)
[2021-07-23] MEDS: metFORMIN HCL 500 MG TABLET (FP) PO SCH ×2 (06:30→16:35)
[2021-07-23] MEDS: INSULIN SLIDING SCALE (NOVOLOG) 1 VIAL SQ SCH ×2 (06:31→11:12)
[2021-07-23] MEDS: APIXABAN 5 MG TABLET PO SCH ×2 (09:40→21:05)
[2021-07-23] MEDS: FLUoxetine HCL 20 MG CAPSULE PO SCH (09:40)
[2021-07-23] MEDS: PRENATAL VITAMINS W/ FOLIC ACID TABLET (FP) PO SCH (09:41)
[2021-07-23] MEDS: NIFEdipine E.R. 30 MG TABLET PO SCH (09:41)
[2021-07-23] MEDS: ATORVASTATIN CA 20 MG TABLET (FP) PO SCH (21:05)
[2021-07-23] MEDS: traZODone HCL 100 MG TABLET (FP) PO SCH (21:05)
[2021-07-23] MEDS: QUEtiapine FUMARATE 400 MG TABLET PO SCH (21:05)
[2021-07-23] MEDS: THIAMINE HCL 100 MG TABLET (FP) PO SCH (21:05)
[2021-07-23] MEDS: TOPIRAMATE 100 MG TABLET PO SCH (21:06)
[2021-07-24] MEDS: GABAPENTIN 400 MG CAPSULE PO SCH ×3 (06:18→21:55)
[2021-07-24] MEDS: metFORMIN HCL 500 MG TABLET (FP) PO SCH ×2 (06:18→17:28)
[2021-07-24] MEDS: INSULIN SLIDING SCALE (NOVOLOG) 1 VIAL SQ SCH (06:44)
[2021-07-24] MEDS: FLUoxetine HCL 20 MG CAPSULE PO SCH (10:05)
[2021-07-24] MEDS: APIXABAN 5 MG TABLET PO SCH ×2 (10:05→21:55)
[2021-07-24] MEDS: NIFEdipine E.R. 30 MG TABLET PO SCH (10:05)
[2021-07-24] MEDS: PRENATAL VITAMINS W/ FOLIC ACID TABLET (FP) PO SCH (10:06)
[2021-07-24] MEDS: LOPERAMIDE HCL 2 MG CAPSULE PO PRN ×2 (13:36→18:35)
[2021-07-24] MEDS: traZODone HCL 100 MG TABLET (FP) PO SCH (21:54)
[2021-07-24] MEDS: QUEtiapine FUMARATE 400 MG TABLET PO SCH (21:55)
[2021-07-24] MEDS: ATORVASTATIN CA 20 MG TABLET (FP) PO SCH (21:55)
[2021-07-24] MEDS: THIAMINE HCL 100 MG TABLET (FP) PO SCH (21:56)
[2021-07-24] MEDS: TOPIRAMATE 100 MG TABLET PO SCH (21:56)
[2021-07-25] MEDS: GABAPENTIN 400 MG CAPSULE PO SCH ×3 (06:40→21:10)
[2021-07-25] MEDS: metFORMIN HCL 500 MG TABLET (FP) PO SCH ×2 (06:40→17:09)
[2021-07-25] MEDS: INSULIN SLIDING SCALE (NOVOLOG) 1 VIAL SQ SCH (06:41)
[2021-07-25] MEDS: LOPERAMIDE HCL 2 MG CAPSULE PO PRN ×2 (06:42→17:37)
[2021-07-25] MEDS: APIXABAN 5 MG TABLET PO SCH ×2 (09:36→21:10)
[2021-07-25] MEDS: NIFEdipine E.R. 30 MG TABLET PO SCH (09:36)
[2021-07-25] MEDS: FLUoxetine HCL 20 MG CAPSULE PO SCH (09:36)
[2021-07-25] MEDS: PRENATAL VITAMINS W/ FOLIC ACID TABLET (FP) PO SCH (09:36)
[2021-07-25] MEDS: traZODone HCL 100 MG TABLET (FP) PO SCH (21:10)
[2021-07-25] MEDS: ATORVASTATIN CA 20 MG TABLET (FP) PO SCH (21:10)
[2021-07-25] MEDS: TOPIRAMATE 100 MG TABLET PO SCH (21:11)
[2021-07-25] MEDS: THIAMINE HCL 100 MG TABLET (FP) PO SCH (21:11)
[2021-07-25] MEDS: QUEtiapine FUMARATE 400 MG TABLET PO SCH (21:11)
[2021-07-26] MEDS: GABAPENTIN 400 MG CAPSULE PO SCH ×3 (06:44→21:05)
[2021-07-26] MEDS: metFORMIN HCL 500 MG TABLET (FP) PO SCH ×2 (06:44→16:44)
[2021-07-26] MEDS: INSULIN SLIDING SCALE (NOVOLOG) 1 VIAL SQ SCH (07:04)
[2021-07-26] MEDS: PRENATAL VITAMINS W/ FOLIC ACID TABLET (FP) PO SCH (09:45)
[2021-07-26] MEDS: FLUoxetine HCL 20 MG CAPSULE PO SCH (09:45)
[2021-07-26] MEDS: APIXABAN 5 MG TABLET PO SCH ×2 (09:45→21:06)
[2021-07-26] MEDS: NIFEdipine E.R. 30 MG TABLET PO SCH (09:45)
[2021-07-26] MEDS: THIAMINE HCL 100 MG TABLET (FP) PO SCH (21:05)
[2021-07-26] MEDS: ATORVASTATIN CA 20 MG TABLET (FP) PO SCH (21:06)
[2021-07-26] MEDS: TOPIRAMATE 100 MG TABLET PO SCH (21:06)
[2021-07-26] MEDS: traZODone HCL 100 MG TABLET (FP) PO SCH (21:06)
[2021-07-26] MEDS: QUEtiapine FUMARATE 400 MG TABLET PO SCH (21:06)
[2021-07-27] MEDS: GABAPENTIN 400 MG CAPSULE PO SCH ×3 (06:24→21:51)
[2021-07-27] MEDS: metFORMIN HCL 500 MG TABLET (FP) PO SCH ×2 (06:24→17:10)
[2021-07-27] MEDS: INSULIN SLIDING SCALE (NOVOLOG) 1 VIAL SQ SCH (07:02)
[2021-07-27] MEDS: NIFEdipine E.R. 30 MG TABLET PO SCH (10:18)
[2021-07-27] MEDS: APIXABAN 5 MG TABLET PO SCH ×2 (10:18→21:51)
[2021-07-27] MEDS: PRENATAL VITAMINS W/ FOLIC ACID TABLET (FP) PO SCH (10:19)
[2021-07-27] MEDS: FLUoxetine HCL 20 MG CAPSULE PO SCH (10:19)
[2021-07-27] MEDS: QUEtiapine FUMARATE 400 MG TABLET PO SCH (21:06)
[2021-07-27] MEDS: ATORVASTATIN CA 20 MG TABLET (FP) PO SCH (21:51)
[2021-07-27] MEDS: TOPIRAMATE 100 MG TABLET PO SCH (21:51)
[2021-07-27] MEDS: traZODone HCL 100 MG TABLET (FP) PO SCH (21:51)
[2021-07-27] MEDS: THIAMINE HCL 100 MG TABLET (FP) PO SCH (21:52)
[2021-07-27] MEDS ORDERED: QUEtiapine FUMARATE 200 MG TABLET PO SCH (22:00)
[2021-07-28] MEDS: GABAPENTIN 400 MG CAPSULE PO SCH ×3 (07:02→21:24)
[2021-07-28] MEDS: metFORMIN HCL 500 MG TABLET (FP) PO SCH ×2 (07:03→17:05)
[2021-07-28] MEDS: INSULIN SLIDING SCALE (NOVOLOG) 1 VIAL SQ SCH (07:04)
[2021-07-28] MEDS: APIXABAN 5 MG TABLET PO SCH ×2 (10:02→21:24)
[2021-07-28] MEDS: FLUoxetine HCL 20 MG CAPSULE PO SCH (10:02)
[2021-07-28] MEDS: NIFEdipine E.R. 30 MG TABLET PO SCH (10:02)
[2021-07-28] MEDS: PRENATAL VITAMINS W/ FOLIC ACID TABLET (FP) PO SCH (10:03)
[2021-07-28] MEDS: traZODone HCL 100 MG TABLET (FP) PO SCH (21:24)
[2021-07-28] MEDS: QUEtiapine FUMARATE 400 MG TABLET PO SCH (21:24)
[2021-07-28] MEDS: ATORVASTATIN CA 20 MG TABLET (FP) PO SCH (21:24)
[2021-07-28] MEDS: TOPIRAMATE 100 MG TABLET PO SCH (21:25)
[2021-07-28] MEDS: THIAMINE HCL 100 MG TABLET (FP) PO SCH (21:25)
[2021-07-29] MEDS: GABAPENTIN 400 MG CAPSULE PO SCH ×3 (06:33→21:04)
[2021-07-29] MEDS: metFORMIN HCL 500 MG TABLET (FP) PO SCH ×2 (06:34→17:20)
[2021-07-29] MEDS: INSULIN SLIDING SCALE (NOVOLOG) 1 VIAL SQ SCH (06:35)
[2021-07-29] MEDS: APIXABAN 5 MG TABLET PO SCH ×2 (09:44→21:04)
[2021-07-29] MEDS: PRENATAL VITAMINS W/ FOLIC ACID TABLET (FP) PO SCH (09:45)
[2021-07-29] MEDS: NIFEdipine E.R. 30 MG TABLET PO SCH (09:45)
[2021-07-29] MEDS: FLUoxetine HCL 20 MG CAPSULE PO SCH (09:45)
[2021-07-29] MEDS: traZODone HCL 100 MG TABLET (FP) PO SCH (21:04)
[2021-07-29] MEDS: QUEtiapine FUMARATE 400 MG TABLET PO SCH (21:04)
[2021-07-29] MEDS: TOPIRAMATE 100 MG TABLET PO SCH (21:04)
[2021-07-29] MEDS: ATORVASTATIN CA 20 MG TABLET (FP) PO SCH (21:04)
[2021-07-29] MEDS: THIAMINE HCL 100 MG TABLET (FP) PO SCH (21:05)
[2021-07-30 06:23] VITALS: TEMP 97.3
[2021-07-30] MEDS: GABAPENTIN 400 MG CAPSULE PO SCH (06:23)
[2021-07-30] MEDS: metFORMIN HCL 500 MG TABLET (FP) PO SCH (06:23)
[2021-07-30] MEDS: INSULIN SLIDING SCALE (NOVOLOG) 1 VIAL SQ SCH (06:24)
[2021-07-30 09:07] VITALS: BP 145/81; PULSE 106
[2021-07-30] MEDS: PRENATAL VITAMINS W/ FOLIC ACID TABLET (FP) PO SCH (09:27)
[2021-07-30] MEDS: NIFEdipine E.R. 30 MG TABLET PO SCH (09:27)
[2021-07-30] MEDS: APIXABAN 5 MG TABLET PO SCH (09:27)
[2021-07-30] MEDS: FLUoxetine HCL 20 MG CAPSULE PO SCH (09:27)
== END 2021-07-30 09:33 | disposition home or self-care (01) | DRG 772 ==
LOC: YASAS 18:28 → Y3E 23:30
PROVIDERS: ADMIT Allergy & Immunology; ATTEND Allergy & Immunology
PROC: HZ42ZZZ Group Counseling for Substance Abuse Treatment, Cognitive-Behavioral (ICD-10-PCS; principal; 2021-07-15)
DX: F10.20 Alcohol dependence, uncomplicated (principal); F14.20 Cocaine dependence, uncomplicated; F12.20 Cannabis dependence, uncomplicated; F20.9 Schizophrenia, unspecified; E78.00 Pure hypercholesterolemia, unspecified; G47.30 Sleep apnea, unspecified; I10 Essential (primary) hypertension; K21.9 Gastro-esophageal reflux disease without esophagitis; E11.9 Type 2 diabetes mellitus without complications; Z79.84 Long term (current) use of oral hypoglycemic drugs; M17.0 Bilateral primary osteoarthritis of knee; M54.50 Low back pain, unspecified; G89.29 Other chronic pain; E66.01 Morbid (severe) obesity due to excess calories; Z68.42 Body mass index [BMI] 45.0-49.9, adult; Z87.891 Personal history of nicotine dependence
CPT/HCPCS: 82962; C9803; U0003; U0005